=== PATIENT | female | born 1955 | race Caucasian/White ===

== ENCOUNTER 2018-10-11 08:30 | Observation (INO) | payer BC ==
[2018-10-11] VITALS (9 sets, daily range): BP systolic 139–158; BP diastolic 77–137
[~2018-10-11] VITALS: Ht 172.7 cm; Wt 120.0 kg
[~2018-10-11 08:30] MED LIST: ASPI-630 PO; ATEN50TA PO; CETI10TA16 PO; CYAN-9 PO; DICY10CA3 PO; GLUC1CAP48 PO; HYDROmorphone 2 MG/ML VIAL IV PRN; INSU100V37 SQ; IV RINGERS,LACTATED 1000ML 1,000 ML IV SCH; LIDOCAINE 1% PF 2 ML VIAL. ID PRN; LIRA0.6P2 SQ; METF10007 PO; MONT10TA49 PO; MORPHINE SULFATE 2 MG/ML VIAL. IV PRN; MULT1TAB52 PO; ONDANSETRON PF 4 MG/2 ML VIAL. IV PRN; PROCHLORPERAZINE 10 MG/2 ML VIAL. IV PRN; SIMV40TA PO; TELM40TA PO; fentaNYL PF VIAL 100 MCG/2 ML VIAL IV PRN
[2018-10-11] MEDS ORDERED: INSULIN LISPRO 100 UNIT/ML 3ML VIAL for OP,RR ONLY. SQ PRN (09:00)
[2018-10-11] MEDS ORDERED: fentaNYL PF VIAL 100 MCG/2 ML VIAL ONE ×2 (09:34→12:05)
[2018-10-11] MEDS ORDERED: DEXAMETHASONE SOD PHOS 4 MG/ML VIAL ONE (10:58)
[2018-10-11] MEDS ORDERED: PHENYLEPHRINE in 0.9% NACL PF 1 MG/10 ML SYRINGE. IV ONE (10:58)
[2018-10-11] MEDS ORDERED: LIDOCAINE 2% PF 5 ML VIAL. ONE (10:58)
[2018-10-11] MEDS ORDERED: SEVOFLURANE > 120 MINUTES. IH ONE (10:58)
[2018-10-11] MEDS ORDERED: ONDANSETRON PF 4 MG/2 ML VIAL. ONE (10:58)
[2018-10-11] MEDS ORDERED: PROPOFOL 20 ML IV ONE (10:58)
[2018-10-11] MEDS ORDERED: ceFAZolin 2GM PREMIX 2 GM/50 ML BAG IV ONE (11:00)
[2018-10-11] MEDS ORDERED: PROCHLORPERAZINE 10 MG/2 ML VIAL. ONE (12:05)
[2018-10-11] MEDS ORDERED: IV NORMAL SALINE 1000ML BAG 1,000 ML IV SCH (12:12)
[2018-10-11] MEDS ORDERED: IV 1/2 NORMAL SALINE 1,000 ML IV SCH (12:12)
--- NOTE | 2018-10-11 12:12 | PDOC4 ---
Operative Note Operative Note Operative Note: Preoperative Diagnosis: Multinodular thyroid Postoperative Diagnosis: Same Procedure: Total thyroidectomy Surgeon: Hu Straw Hat Brim Raiser Operator: Tan Morales Anesthesia: Gen. EBL: 50 mL Specimen: Thyroid, stitch at right superior pole to pathology Drains: None Complications: None Indication: The patient is a 62-year-old female who was referred initially with dominant nodules of both lobes of her thyroid. I reviewed with her various options including needle biopsy versus thyroidectomy. She strongly prefers a complete thyroidectomy stating that relatives of hers had occult papillary thyroid cancer. The risks of surgery were discussed which include bleeding, infection, recurrent laryngeal nerve injury, hypoparathyroidism, pain, voice changes, potential need for additional surgery or procedure. She understands and would like to proceed Description: The patient was taken the operating room and placed supine on the operating table. Gen. anesthesia was performed. The anterior neck was prepped with ChloraPrep and draped in a standard surgical manner. The Nims device was also assembled. A curved neck incision was made 2 finger breaths above the sternal notch. Cautery dissection was carried to the platysma. Subplatysmal flaps were developed with cautery. The Mahorner retractor was used to facilitate exposure. The strap muscle fascia was divided in the midline and we began dissection on the right thyroid lobe. The lateral attachments were mobilized primarily with cautery. We then began taking down the superior pole. The blood vessels of the superior pole were ligated with 2-0 Vicryl and divided. The Harmonic scalpel assisted with this dissection as well. In a similar manner the inferior pole vessels were taken down. There was a glandular structure consistent with a parathyroid gland which was left intact. In a lateral to medial manner we mobilized the thyroid lobe. There was a small lobule of tissue in close approximation to the recurrent laryngeal nerve which we elected to keep intact to ensure nerve preservation. We then directed our attention to the left thyroid lobe. In a similar manner the superior and inferior pole vessels were ligated and divided. The left thyroid lobe was mobilized in a lateral to medial fashion. The left recurrent laryngeal nerve was readily identified and stimulated appropriately with the Nims device. In addition we saw two glandular structures consistent with parathyroid glands which were preserved. With the Harmonic scalpel all remaining attachments to the trachea were divided and the gland was fully removed. The right superior pole was with a 3-0 Vicryl suture and the specimen was sent to pathology for evaluation. Hemostasis was good. The left recurrent laryngeal nerve again stimulated appropriately. No other gross abnormalities were identified. The strap muscle fascia was approximated with 3-0 Vicryl. The platysma was approximated with 3-0 Vicryl. The skin was closed with 4-0 Monocryl. Steri-Strips and a sterile dressing were applied. The patient tolerated the procedure well and was sent to the recovery room in stable condition. At the end of the case all counts were correct. TUSHAR MURPHY MD Oct 11, 2018 12:12
[2018-10-11] MEDS ORDERED: 0.9 % SODIUM CHLORIDE 10 ML DISP.SYRIN. IV PRN (12:15)
[2018-10-11] MEDS ORDERED: HYDROmorphone 2 MG/ML VIAL IV PRN (12:15)
[2018-10-11] MEDS ORDERED: oxyCODONE/APAP 5/325 1 TAB TABLET PO PRN (12:15)
[2018-10-11] MEDS ORDERED: ONDANSETRON PF 4 MG/2 ML VIAL. IV PRN (12:15)
[2018-10-11] MEDS ORDERED: NALOXONE 0.4 MG/ML VIAL. IV PRN (12:15)
--- NOTE | 2018-10-11 13:15 | NUR ---
Rec'd from PACU per bed, anterior neck dressing clean, dry & intact, states discomfort level 5/10, ice pack in place for comfort, appears drowsy, IVF infusing into left hand, bilateral SCD's in place, oxygen @ 3L/nc, HOB elevatedoriented to surroundings, call light within reach, side rails up x 3, family members at bedside
[2018-10-11] MEDS: metFORMIN 500 MG TABLET PO SCH (16:51)
[2018-10-11] MEDS ORDERED: NON FORMULARY ITEM (Liraglutide (Victoza 3-Pak) 1.8 MG) SQ SCH (18:00)
[2018-10-11] MEDS: oxyCODONE/APAP 5/325 1 TAB TABLET PO PRN (19:32)
[2018-10-11] MEDS ORDERED: INSULIN GLARGINE SYRINGE. SQ SCH (21:00)
[2018-10-11] MEDS ORDERED: SIMVASTATIN 40 MG TABLET. PO SCH (21:00)
[2018-10-11] MEDS ORDERED: MONTELUKAST SODIUM 10 MG TABLET. PO SCH (21:00)
[2018-10-11] MEDS: DICYCLOMINE HCL 10 MG CAPSULE PO SCH (21:57)
[2018-10-11] MEDS: ATENOLOL 50 MG TABLET. PO SCH (21:58)
[2018-10-12 03:00] VITALS: BP 151/87
[2018-10-12 06:00] VITALS: BP 152/91
[2018-10-12] MEDS: metFORMIN 500 MG TABLET PO SCH (08:07)
[2018-10-12] MEDS: oxyCODONE/APAP 5/325 1 TAB TABLET PO PRN (08:08)
[2018-10-12] MEDS: DICYCLOMINE HCL 10 MG CAPSULE PO SCH (08:08)
[2018-10-12] MEDS: ATENOLOL 50 MG TABLET. PO SCH (08:14)
[2018-10-12] MEDS ORDERED: INSULIN GLARGINE SYRINGE. SQ SCH (09:00)
[2018-10-12] MEDS ORDERED: LOSARTAN POTASSIUM 25 MG TABLET. PO SCH (09:00)
[2018-10-12] MEDS ORDERED: MULTIVITAMIN with MINERAL TABLET. PO SCH (09:00)
[2018-10-12] MEDS ORDERED: ASPIRIN CHEWABLE 81 MG TABLET. PO SCH (09:00)
[2018-10-12] MEDS ORDERED: CETIRIZINE HCL 10 MG TABLET. PO SCH (09:00)
[2018-10-12 10:58] VITALS: BP 140/72
--- NOTE | 2018-10-12 11:28 | PDOC ---
SURGICAL PROGRESS NOTE Subjective tolerating diet, throat mildly sore voice strong ambulating urinating Vital Signs Vital Signs Date Time Temp Pulse Resp B/P (MAP) Pulse Ox O2 Delivery O2 Flow Rate FiO2 10/12/18 10:58 97.7 65 18 140/72 (94) 95 Room Air 97.7 10/12/18 03:00 2.0 I&O Intake and Output 10/12/18 07:00 Intake Total 1910 ml Output Total 1100 ml Balance 810 ml Intake Oral 460 ml IV Total 1450 ml Output Urine Total 1050 ml Estimated Blood Loss 50 ml # Voids 3 General: Alert, Oriented X3, Cooperative, No acute distress HEENT: Other (neck incision c/d/i, no erythema, no swelling or ecchymosis) Labs Laboratory Tests Test 10/11/18 08:57 10/11/18 12:13 10/11/18 16:44 10/11/18 21:50 Glucose (Fingerstick) 131 mg/dL (70-99) 95 mg/dL (70-99) 139 mg/dL (70-99) 160 mg/dL (70-99) Test 10/12/18 06:23 10/12/18 08:35 10/12/18 10:55 Glucose (Fingerstick) 101 mg/dL (70-99) 93 mg/dL (70-99) Calcium Level 7.9 mg/dL (8.5-10.1) Laboratory Tests Test 10/11/18 12:13 10/11/18 16:44 10/11/18 21:50 10/12/18 06:23 Glucose (Fingerstick) 95 mg/dL (70-99) 139 mg/dL (70-99) 160 mg/dL (70-99) 101 mg/dL (70-99) Test 10/12/18 08:35 10/12/18 10:55 Calcium Level 7.9 mg/dL (8.5-10.1) Glucose (Fingerstick) 93 mg/dL (70-99) Assessment/Plan s/p total thyroidectomy ca mildly low 7.9 scripts on chart for calcium, vit d, levothyroxine, and percocet Fu in clinic 2 weeks BRAYAN CANO APRN Oct 12, 2018 11:28
[2018-10-12] MEDS ORDERED: CHOL10003 PO (11:31)
[2018-10-12] MEDS ORDERED: LEVO50TA PO (11:31)
[2018-10-12] MEDS ORDERED: OXYC1TAB15 PO (11:31)
[2018-10-12] MEDS ORDERED: CALC500T13 PO (11:31)
--- NOTE | 2018-10-12 11:35 | DISCH ---
DISCHARGE INSTRUCTIONS Condition on Discharge Condition on Discharge: Stable Activity After Discharge Activity Instructions for Disc: Activity as tolerated, Avoid exertion Driving Instructions after Dis: Do not drive today Weight Bearing Status after Di: No restrictions Diet after Discharge Diet after Discharge: Diabetic No Calorie Level Diet Texture: Regular Liquid Texture: Thin Liquid Wound Incision Care Wound/Incision Care: Ice to area for comfort, May get incision wet, No wound care needed Other wound/incision instructi: ZACK Contacting the [facility] after DC Call your doctor for: Concerns you may have Follow-Up Follow Up With: Dr. Lui in 10-14 days [phone] Treatment/Equipment after DC Adaptive Equipment Issued: None BRAYAN CANO APRN Oct 12, 2018 11:35
[2018-10-12] MEDS ORDERED: LEVOTHYROXINE 50 MCG TABLET PO SCH (12:00)
[2018-10-12] MEDS ORDERED: CALCIUM CARBONATE 500 MG TABLET PO SCH (13:00)
--- NOTE | 2018-10-12 13:35 | NUR ---
Discharge instructions given with prescriptions. Answered questions or concerns. Verbalized understanding. Pt discharged home accompanied by daughter.
[2018-10-13] MEDS ORDERED: CHOLECALCIFEROL (VITAMIN D3) 1,000 UNIT TABLET PO SCH (09:00)
--- NOTE | 2018-10-13 19:29 | PATHOLOGY ---
[facility] Accession Number: [id number] . 01 Material submitted: . thyroid gland - THYROID . 01 Clinical history: . Multinodular goiter . 02 Diagnosis: Thyroid gland, total thyroidectomy: - Adenomatous and colloid nodules, right and left thyroid lobes and thyroid isthmus, the largest measuring 1.8 cm in greatest dimension, showing focal cystic degeneration, sclerosis, and calcification (thyroid weight 28 grams). - Presence of benign thyroid tissue infiltrating skeletal muscle of the thyroid isthmic region. - No parathyroid glands identified. . (JPM:mml; 10/13/2018) [facility]/10/13/2018 . 02 Comment: There is no evidence of malignancy. . (JPM:mml; 10/13/2018) . 02 Electronically signed: . Kash Malone MD, Pathologist NPI- [id number] . 01 Gross description: . The specimen is received in formalin, labeled "Geetha Call, thyroid suture at right superior pole", is an oriented total thyroidectomy specimen with a suture designated as right superior pole, weighing 28 g and with asymmetrical lobes measuring right lobe = 6.2 x 3.4 x 1.7 cm, isthmus = 4.0 x 1.8 x 0.8 cm and left lobe = 4.0 x 2.0 x 1.8 cm. The external surface is smooth and intact. The specimen is inked as follows: Right anterior = blue, anterior isthmus = yellow, left anterior = green and entire posterior = black. The cut surface has multiple gelatinous, cystic, hemorrhagic nodules ranging from 0.3 cm to 1.8 cm in diameter throughout the gland. There two bryant-white, firm, solid focus probable fibrosis measuring 0.8 x 0.3 x 0.2 cm in right lower pole and 0.8 x 0.3 x 0.3 cm in the left superior pole. The cyst nodules are confined within the gland and does not extend to the external capsule. The uninvolved thyroid parenchyma is beefy red. Both the fibrous focus our entirely submitted. Representatively submitted as follows: A1-A4. Right lobe, superior to inferior pole. (A3 and A4 = fibrous focus) A5-A6. Isthmus, single slice bisected in each cassette. A7-A10. Left lobe, superior to inferior pole. (A7 = fibrous focus) ([facility]; 10/12/2018) [facility] . 02 Pathologist provided ICD-10: E04.2 . 02 CPT . 497121 Specimen Comment: A courtesy copy of this report has been sent to Specimen Comment: [phone], , . Specimen Comment: Report sent to ,DR THACKER / DR LE Performed at: 01 [facility] [address] [facility] [address] [address], [place] [id number] MD Jesus Jacobo MD Phone: [phone] Performed at: 02 [facility] [address], [place] [id number] MD Kash Malone MD Phone: [phone]
== END 2018-10-12 13:35 | disposition home or self-care (01) ==
LOC: SURG 08:30 → 4 SOUTHEST 12:27
PROVIDERS: ADMIT Surgery; ATTEND Surgery
PROC: 0GBJ0ZZ Excision of Thyroid Gland Isthmus, Open Approach (ICD-10-PCS; 2018-10-11)
PROC: 0GTK0ZZ Resection of Thyroid Gland, Open Approach (ICD-10-PCS; principal; 2018-10-11 10:00)
DX: E04.2 Nontoxic multinodular goiter (principal); I10 Essential (primary) hypertension; E11.9 Type 2 diabetes mellitus without complications; E66.9 Obesity, unspecified
CPT/HCPCS: 36415; 60240; 82310; 82962; 88307; 96372; A7015; G0378; G0379; J0696; J1100; J1815; J2001; J2370; J2704; J3010; J7120; J0780; J2405

== ENCOUNTER 2018-10-17 12:40 | Inpatient (IN) | payer BC ==
[~2018-10-17] VITALS: Ht 172.7 cm; Wt 117.2 kg
[~2018-10-17 12:40] MED LIST changes: +CALC500T13 PO; +CHOL10003 PO; -HYDROmorphone 2 MG/ML VIAL IV PRN; -IV RINGERS,LACTATED 1000ML 1,000 ML IV SCH; +LEVO50TA PO; -LIDOCAINE 1% PF 2 ML VIAL. ID PRN; -MORPHINE SULFATE 2 MG/ML VIAL. IV PRN; -ONDANSETRON PF 4 MG/2 ML VIAL. IV PRN; +OXYC1TAB15 PO; -PROCHLORPERAZINE 10 MG/2 ML VIAL. IV PRN; -fentaNYL PF VIAL 100 MCG/2 ML VIAL IV PRN
[2018-10-17] MEDS ORDERED: fentaNYL PF VIAL 100 MCG/2 ML VIAL IV ONE (13:15)
--- NOTE | 2018-10-17 13:27 | PHYS DOC ---
Adult General Chief Complaint Chief Complaint: LOWER EXTREMITY SWELLING HPI HPI Patient is a 62-year-old female who presents to the emergency department for evaluation. She underwent a thyroidectomy a few days ago, and overall has been doing well, except that she developed some swelling on the dorsum of her right foot, as well as increasing pain, warmth, and redness, which has gradually been working its way up her right anterior guzmán. She denies any injuries. She did undergo an outpatient ultrasound, yesterday, which she reports was negative for evidence of DVT. Numbness, or weakness P palpation and attempted ambulation worsen her pain. There are no alleviating factors to her symptoms. Review of Systems Review of Systems Constitutional: Denies fever or chills [] Eyes: Denies change in visual acuity, redness, or eye pain [] HENT: Denies nasal congestion or sore throat [] Respiratory: Denies cough or shortness of breath . Denies pleuritic chest pain.[] Cardiovascular:The patient denies any shortness of breath, chest pain, palpitations, or orthopnea [] GI: Denies abdominal pain, nausea, vomiting, bloody stools or diarrhea [] : Denies dysuria or hematuria [] Musculoskeletal: Denies back pain or joint pain , except as noted in the history of present illness[] Integument: Denies rash or skin lesions, except as noted in the history of present illness [] Neurologic: Denies headache, focal weakness or sensory changes [] Endocrine: Denies polyuria or polydipsia [] All other systems were reviewed and found to be within normal limits, except as documented in this note. Current Medications Current Medications Current Medications Medications (Trade) Dose Ordered Sig/Randy Start Time Stop Time Status Last Admin Dose Admin Clindamycin Phosphate 50 ml @ 100 mls/hr 1X ONCE 10/17/18 15:15 10/17/18 15:44 10/17/18 15:25 100 MLS/HR Fentanyl Citrate (Fentanyl 2ml Vial) 50 mcg 1X ONCE 10/17/18 13:15 10/17/18 13:16 DC 10/17/18 13:59 50 MCG Allergies Allergies Allergies Coded Allergies Type Severity Reaction Last Updated Verified No Known Drug Allergies 10/11/18 No Physical Exam Physical Exam PHYSICAL EXAM: CONSTITUTIONAL: Well developed, well nourished HEAD: normocephalic, atraumatic EENT: PERRL, EOMI. Conjunctivae normal color, sclerae non-icteric; moist mucous membranes. NECK: Supple, non-tender; no meningismus. There is a clean, healing surgical scar in the anterior aspect of the neck. LUNGS: Lungs CTA, breathing even and unlabored. Normal air movement. HEART: Regular rate and rhythm, no murmur CHEST: No deformity; non-tender ABDOMEN: The abdomen is soft, and non-tender, no masses or bruits. EXTREM: There is edema noted to the right ankle and dorsum of the right foot, with warmth and erythema to this area. The area is tender to touch. Dorsalis pedis pulses present. Erythema extends up towards the distal third of the right guzmán. There is trace pedal edema on the left ankle and foot, not as pronounced as on the right. The remainder of the extremities are unremarkable, demonstrating Normal ROM; no deformity, no calf tenderness. Normal pulses palpable in all extremities. SKIN: No rash; no diaphoresis NEURO: Alert; normal speech and cognition; CN's grossly intact; strength grossly intact without focal deficit. BACK: No CVA TTP. Current Patient Data Vital Signs Vital Signs Date Time Temp Pulse Resp B/P (MAP) Pulse Ox O2 Delivery O2 Flow Rate FiO2 10/17/18 13:00 98.6 79 16 168/74 (105) 93 Room Air 98.6 Lab Values Laboratory Tests Test 10/17/18 13:45 White Blood Count 8.1 x10^3/uL (4.0-11.0) Red Blood Count 4.81 x10^6/uL (3.50-5.40) Hemoglobin 13.8 g/dL (12.0-15.5) Hematocrit 40.8 % (36.0-47.0) Mean Corpuscular Volume 85 fL (79-100) Mean Corpuscular Hemoglobin 29 pg (25-35) Mean Corpuscular Hemoglobin Concent 34 g/dL (31-37) Red Cell Distribution Width 14.8 % (11.5-14.5) H Platelet Count 191 x10^3/uL (140-400) Neutrophils (%) (Auto) 67 % (31-73) Lymphocytes (%) (Auto) 20 % (24-48) L Monocytes (%) (Auto) 12 % (0-9) H Eosinophils (%) (Auto) 1 % (0-3) Basophils (%) (Auto) 0 % (0-3) Neutrophils # (Auto) 5.4 x10^3/uL (1.8-7.7) Lymphocytes # (Auto) 1.6 x10^3/uL (1.0-4.8) Monocytes # (Auto) 1.0 x10^3/uL (0.0-1.1) Eosinophils # (Auto) 0.1 x10^3/uL (0.0-0.7) Basophils # (Auto) 0.0 x10^3/uL (0.0-0.2) Erythrocyte Sedimentation Rate 50 (0-25) H Sodium Level 140 mmol/L (136-145) Potassium Level 4.1 mmol/L (3.5-5.1) Chloride Level 101 mmol/L (98-107) Carbon Dioxide Level 33 mmol/L (21-32) H Anion Gap 6 (6-14) Blood Urea Nitrogen 10 mg/dL (7-20) Creatinine 0.6 mg/dL (0.6-1.0) Estimated GFR (Cockcroft-Gault) 102.0 BUN/Creatinine Ratio 17 (6-20) Glucose Level 114 mg/dL (70-99) H Lactic Acid Level 1.8 mmol/L (0.4-2.0) Uric Acid 7.3 mg/dL (2.6-6.0) H Calcium Level 7.5 mg/dL (8.5-10.1) L Ionized Calcium 0.92 mmol/L (1.13-1.32) L Total Bilirubin 1.0 mg/dL (0.2-1.0) Aspartate Amino Transferase (AST) 23 U/L (15-37) Alanine Aminotransferase (ALT) 23 U/L (14-59) Alkaline Phosphatase 86 U/L (46-116) C-Reactive Protein, Quantitative 80.5 mg/L (0-3.3) H UV-Eed-O-Type Natriuretic Peptide 46 pg/mL (0-124) Total Protein 7.7 g/dL (6.4-8.2) Albumin 3.6 g/dL (3.4-5.0) Albumin/Globulin Ratio 0.9 (1.0-1.7) L Laboratory Tests 10/17/18 13:45 Laboratory Tests 10/17/18 13:45 EKG EKG [] Radiology/Procedures Radiology/Procedures [PROCEDURE: ANKLE RIGHT 3V EXAM: 3 views right ankle 3 views right foot DATE: 10/17/2018 1:06 PM INDICATION: Right foot and ankle pain. No known injury, swelling. COMPARISON: No Prior FINDINGS: No evidence of acute fracture or dislocation. Ankle mortise is congruent. Talar dome is intact. Decreased bone mineral density. Calcaneal enthesopathy. Midfoot degenerative changes are seen. Type I accessory navicular. Prominent os peroneus. IMPRESSION: 1. Within the constraints of osteopenia, no evidence for acute fracture or dislocation. If there is persistent clinical concern for fracture, follow-up radiographs in 10-14 days is recommended. 2. Ankle mortise is congruent. Talar dome is intact.] Course & Med Decision Making Course & Med Decision Making Pertinent Labs and Imaging studies reviewed. (See chart for details) []3:30 PM:The patient's condition remains stable. I spoke with the hospitalist, who accepted the patient to the hospital for further evaluation and treatment. Dragon Disclaimer Dragon Disclaimer This electronic medical record was generated, in whole or in part, using a voice recognition dictation system. Departure Departure Impression: Primary Impression: Cellulitis Disposition: ADMITTED INPATIENT Admitting Physician: PEYTON Condition: STABLE Referrals: DAVID THACKER MD (PCP) JOSIAH HINSON MD Oct 17, 2018 13:27
--- NOTE | 2018-10-17 13:40 | RAD ---
EXAM: 3 views right ankle 3 views right foot DATE: 10/17/2018 1:06 PM INDICATION: Right foot and ankle pain. No known injury, swelling. COMPARISON: No Prior FINDINGS: No evidence of acute fracture or dislocation. Ankle mortise is congruent. Talar dome is intact. Decreased bone mineral density. Calcaneal enthesopathy. Midfoot degenerative changes are seen. Type I accessory navicular. Prominent os peroneus. IMPRESSION: 1. Within the constraints of osteopenia, no evidence for acute fracture or dislocation. If there is persistent clinical concern for fracture, follow-up radiographs in 10-14 days is recommended. 2. Ankle mortise is congruent. Talar dome is intact. Electronically signed by: Christopher Falk MD (10/17/2018 1:37 PM) [id number]
[2018-10-17 14:05] LABS: BASO % 0 % (0-3); EOS # 0.1 x10^3/uL (0.0-0.7); EOS % 1 % (0-3); HEMATOCRIT 40.8 % (36.0-47.0); HEMOGLOBIN 13.8 g/dL (12.0-15.5); LYMPH # 1.6 x10^3/uL (1.0-4.8); LYMPH % 20 % (24-48); MEAN CORPUSCULAR HEMOGLOBIN 29 pg (25-35); MEAN CORPUSCULAR HGB CONC 34 g/dL (31-37); MEAN CORPUSCULAR VOLUME 85 fL (79-100); MONO % 12 % (0-9); NEUT # 5.4 x10^3/uL (1.8-7.7); NEUT % 67 % (31-73); PLATELET COUNT 191 x10^3/uL (140-400); RED BLOOD COUNT 4.81 x10^6/uL (3.50-5.40); RED CELL DISTRIBUTION WIDTH 14.8 % (11.5-14.5); WHITE BLOOD COUNT 8.1 x10^3/uL (4.0-11.0)
[2018-10-17 14:19] LABS: CALCIUM 7.5 mg/dL (8.5-10.1); CREATININE 0.6 mg/dL (0.6-1.0); POTASSIUM 4.1 mmol/L (3.5-5.1)
[2018-10-17 14:33] LABS: ALBUMIN 3.6 g/dL (3.4-5.0); ALBUMIN/GLOBULIN RATIO 0.9 (1.0-1.7); C-REACTIVE PROTEIN 80.5 mg/L (0-3.3); TOTAL PROTEIN 7.7 g/dL (6.4-8.2); URIC ACID 7.3 mg/dL (2.6-6.0)
[2018-10-17] MEDS ORDERED: CLINDAMYCIN 900MG PREMIX 50 ML IV ONE (15:15)
[2018-10-17] MEDS ORDERED: oxyCODONE/APAP 5/325 1 TAB TABLET PO PRN (16:15)
[2018-10-17] MEDS ORDERED: HYDROcodone/APAP 5/325MG 1 TAB TABLET PO PRN (16:15)
[2018-10-17] MEDS ORDERED: fentaNYL PF VIAL 100 MCG/2 ML VIAL IV PRN (16:15)
[2018-10-17] MEDS ORDERED: cloNIDine HCL 0.1 MG TABLET PO PRN (16:15)
[2018-10-17] MEDS ORDERED: DEXTROSE 50% 25 GM / 50ML DISP.SYRIN. IV PRN (16:15)
[2018-10-17] MEDS ORDERED: IV DEXTROSE 5% 250 ML BAG. IV PRN (16:15)
[2018-10-17] MEDS ORDERED: ONDANSETRON PF 4 MG/2 ML VIAL. IV PRN (16:15)
[2018-10-17] MEDS ORDERED: TEMAZEPAM 7.5 MG CAPSULE PO PRN (16:15)
[2018-10-17] MEDS ORDERED: INSULIN LISPRO 300 UNITS/3 ML VIAL. SQ SCH (17:00)
[2018-10-17] MEDS ORDERED: predniSONE 20 MG TABLET PO ONE (17:45)
[2018-10-17] MEDS ORDERED: INSULIN GLARGINE SYRINGE. SQ SCH (18:00)
[2018-10-17] MEDS ORDERED: NON FORMULARY ITEM (Liraglutide (Victoza 3-Pak) 1.8 MG) SQ SCH (18:00)
[2018-10-17] MEDS ORDERED: COLCHICINE 0.6 MG TABLET PO ONE (18:00)
--- NOTE | 2018-10-17 18:06 | PDOC1 ---
History and Physical Date of Admission Date of Admission DATE: 10/17/18 TIME: 17:59 Identification/Chief Complaint Chief Complaint rt dorsal foot pain Source Source: Caregiver, Chart review, Patient History of Present Illness History of Present Illness 62 obese white female, had uneventful thyroidectomy here last week by our [facility] group, then 3-4 days ago woke up with acute RT dorsal foot redness and swelling, denies any skin breakage or trauma, no hx gout, BUT has elevated uric acid and esr /crp. And also now complains maybe the left foot is beginning some swelling, Got a dose clinda but i dont think this is infectious but rather inflammatory in nature, Will give colcrys, prednisone, nsaid, hold off abx for now, \US done as OP in that leg, neg for clot She has difficulty bearing weight on that extremity bec of the swelling Past Medical History Cardiovascular: HTN Endocrine: Diabetes Past Surgical History Past Surgical History: Other (thyroidectomy) Family History Family History: Hypertension Social History Smoke: No ALCOHOL: none Drugs: None Current Problem List Problem List Problems Medical Problems: (1) Cellulitis Status: Acute Current Medications Current Medications Current Medications Fentanyl Citrate (Fentanyl 2ml Vial) 50 mcg 1X ONCE IV Last administered on 10/17/18at 13:59; Start 10/17/18 at 13:15; Stop 10/17/18 at 13:16; Status DC Clindamycin Phosphate 50 ml @ 100 mls/hr 1X ONCE IV Last administered on 10/17/18at 15:25; Start 10/17/18 at 15:15; Stop 10/17/18 at 15:44; Status DC Fentanyl Citrate (Fentanyl 2ml Vial) 50 mcg PRN Q2HR PRN IV MODERATE TO SEVERE PAIN; Start 10/17/18 at 16:15 Clindamycin Phosphate 50 ml @ 100 mls/hr Q8HRS IV ; Start 10/17/18 at 22:00; Stop 10/17/18 at 17:38; Status DC Clonidine HCl (Catapres) 0.1 mg PRN Q1HR PRN PO HYPERTENSION; Start 10/17/18 at 16:15 Temazepam (Restoril) 7.5 mg PRN QHS PRN PO INSOMNIA; Start 10/17/18 at 16:15 Ondansetron HCl (Zofran) 4 mg PRN Q6HRS PRN IV NAUSEA/VOMITING; Start 10/17/18 at 16:15 Acetaminophen/ Hydrocodone Bitart (Lortab 5/325) 1 tab PRN Q4HRS PRN PO M ODERATE PAIN; Start 10/17/18 at 16:15 Naproxen (Naprosyn) 500 mg BID PO ; Start 10/17/18 at 21:00; Stop 10/17/18 at 17:38; Status DC Aspirin (Children'S Aspirin) 81 mg DAILY PO ; Start 10/18/18 at 09:00 Atenolol (Tenormin) 50 mg BID PO ; Start 10/17/18 at 21:00 Calcium Carbonate/ Glycine (Oscal) 500 mg TIDAFTMEAL PO ; Start 10/17/18 at 18:00 Cetirizine HCl (ZyrTEC) 10 mg DAILY PO ; Start 10/18/18 at 09:00 Vitamin D (Vitamin D3) 500 unit DAILY PO ; Start 10/18/18 at 09:00 Dicyclomine HCl (Bentyl) 10 mg BID PO ; Start 10/17/18 at 21:00 Levothyroxine Sodium (Synthroid) 50 mcg DAILY06 PO ; Start 10/18/18 at 06:00 Montelukast Sodium (Singulair) 10 mg HS PO ; Start 10/17/18 at 21:00 Oxycodone/ Acetaminophen (Percocet 5/325) 1 tab PRN Q4HRS PRN PO MILD PAIN, 1ST CHOICE; Start 10/17/18 at 16:15 Simvastatin (Zocor) 40 mg QHS PO ; Start 10/17/18 at 21:00 Cyanocobalamin (Vitamin B-12) 1,000 mcg DAILY PO ; Start 10/18/18 at 09:00 Non-Formulary Medication (Gluc 2KCL/ Chondr/Brian Hy/Hy Ac (Glucosamine & Chondroitin Cap)) 1 each DAILY PO ; Start 10/18/18 at 09:00; Status UNV Insulin Glargine (Lantus Syringe) 30 unit QEVNG SQ ; Start 10/17/18 at 18:00 Insulin Glargine (Lantus Syringe) 60 unit DAILYWBKFT SQ ; Start 10/18/18 at 08:00 Non-Formulary Medication (Liraglutide (Victoza 3-Sea)) 1.8 mg QEVNG SQ ; Start 10/17/18 at 18:00; Status UNV Metformin HCl (Glucophage) 1,000 mg BIDWMEALS PO ; Start 10/17/18 at 17:30 Multivitamins (Thera M Plus) 1 tab DAILY PO ; Start 10/18/18 at 09:00 Losartan Potassium (Cozaar) 25 mg DAILY PO ; Start 10/18/18 at 09:00 Insulin Human Lispro (HumaLOG) 0-9 UNITS TIDWMEALS SQ ; Start 10/17/18 at 17:00 Dextrose (Dextrose 50%-Water Syringe) 12.5 gm PRN Q15MIN PRN IV SEE COMMENTS; Start 10/17/18 at 16:15 Dextrose 250 ml PRN Q15MIN PRN IV SEE COMMENTS; Start 10/17/18 at 16:15; Status UNV Naproxen (Naprosyn) 500 mg BID PO ; Start 10/17/18 at 18:00 Colchicine (Colcrys) 1.2 mg 1X ONCE PO ; Start 10/17/18 at 18:00; Stop 10/17/18 at 18:01 Colchicine (Colcrys) 0.6 mg DAILY PO ; Start 10/18/18 at 09:00 Prednisone (Prednisone) 60 mg 1X ONCE PO ; Start 10/17/18 at 17:45; Stop 10/17/18 at 17:51; Status DC Prednisone (Prednisone) 40 mg DAILY PO ; Start 10/18/18 at 09:00 Active Scripts Active Vitamin D3 (Cholecalciferol (Vitamin D3)) 1,000 Unit Tablet 500 Unit PO DAILY Synthroid (Levothyroxine Sodium) 50 Mcg Tablet 50 Mcg PO DAILY06 Oyster Shell Calcium (Calcium Carbonate) 500 Mg Tablet 500 Mg PO TIDAFTMEAL Percocet 5-325 Mg Tablet (Oxycodone/Acetaminophen) 1 Each Tablet 1 Tab PO PRN Q4HRS PRN Reported Glucosamine & Chondroitin Cap (Gluc 2KCL/Chondr/Brian Hy/Hy Ac) 1 Each Capsule 1 Each PO DAILY Tresiba (Insulin Degludec) 100 Unit/1 Ml Vial 30 Unit SQ QEVNG Tresiba (Insulin Degludec) 100 Unit/1 Ml Vial 60 Unit SQ DAILYWBKFT Victoza 3-Sea (Liraglutide) 0.6 Mg/0.1 Ml Pen.injctr 1.8 Mg SQ QEVNG Aspirin 81 Mg Tab.chew 1 Tab PO DAILY Vitamin B-12 (Cyanocobalamin (Vitamin B-12)) 1,000 Mcg Capsule 1,000 Mcg PO DAILY Multivitamins (Multivitamin) 1 Each Tablet 1 Tab PO DAILY Dicyclomine Hcl 10 Mg Capsule 1 Cap PO BID Cetirizine Hcl 10 Mg Tablet 1 Tab PO DAILY Zocor (Simvastatin) 40 Mg Tablet 1 Tab PO QHS Atenolol 50 Mg Tablet 1 Tab PO BID Montelukast Sodium Tablet (Montelukast Sodium) 10 Mg Tablet 10 Mg PO HS Micardis (Telmisartan) 40 Mg Tablet 0.5 Tab PO DAILY Metformin Hcl 1,000 Mg Tablet 1,000 Mg PO BIDWMEALS Allergies Allergies: Coded Allergies: No Known Drug Allergies (Unverified , 10/11/18) ROS Review of System as per hpi, no fevers, the rest 14 pt neg Physical Exam General: Alert, Oriented X3, Cooperative, No acute distress HEENT: Atraumatic, PERRLA, EOMI Lungs: Clear to auscultation, Normal air movement Heart: S1S2, RRR, no thrills, no rubs, no gallops, no murmurs Cardiovascular: S1 Breasts: Normal, Rt breast nml w/o mass, Lt breast nml w/o mass, Nipples normal Abdomen: Normal bowel sounds, Soft, No tenderness, No hepatosplenomegaly, No masses Male Genitals Exam: normal genitalia, normal prostate Rectal Exam: not examined Extremities: Other (redenss rt dorsal surface, noskin break, limited movement bec of pain and swelling) Neuro: Normal gait, Normal speech, Strength at 5/5 X4 ext, Normal tone, Sensation intact, Cranial nerves 3-12 NL, Reflexes 2+ Psych/Mental Status: Mental status NL, Mood NL Vitals Vitals Vital Signs Date Time Temp Pulse Resp B/P (MAP) Pulse Ox O2 Delivery O2 Flow Rate FiO2 10/17/18 16:00 76 19 141/66 (91) 95 Nasal Cannula 2.0 10/17/18 13:00 98.6 98.6 Labs Labs Laboratory Tests Test 10/17/18 13:45 White Blood Count 8.1 x10^3/uL (4.0-11.0) Red Blood Count 4.81 x10^6/uL (3.50-5.40) Hemoglobin 13.8 g/dL (12.0-15.5) Hematocrit 40.8 % (36.0-47.0) Mean Corpuscular Volume 85 fL (79-100) Mean Corpuscular Hemoglobin 29 pg (25-35) Mean Corpuscular Hemoglobin Concent 34 g/dL (31-37) Red Cell Distribution Width 14.8 % (11.5-14.5) Platelet Count 191 x10^3/uL (140-400) Neutrophils (%) (Auto) 67 % (31-73) Lymphocytes (%) (Auto) 20 % (24-48) Monocytes (%) (Auto) 12 % (0-9) Eosinophils (%) (Auto) 1 % (0-3) Basophils (%) (Auto) 0 % (0-3) Neutrophils # (Auto) 5.4 x10^3/uL (1.8-7.7) Lymphocytes # (Auto) 1.6 x10^3/uL (1.0-4.8) Monocytes # (Auto) 1.0 x10^3/uL (0.0-1.1) Eosinophils # (Auto) 0.1 x10^3/uL (0.0-0.7) Basophils # (Auto) 0.0 x10^3/uL (0.0-0.2) Erythrocyte Sedimentation Rate 50 (0-25) Sodium Level 140 mmol/L (136-145) Potassium Level 4.1 mmol/L (3.5-5.1) Chloride Level 101 mmol/L (98-107) Carbon Dioxide Level 33 mmol/L (21-32) Anion Gap 6 (6-14) Blood Urea Nitrogen 10 mg/dL (7-20) Creatinine 0.6 mg/dL (0.6-1.0) Estimated GFR (Cockcroft-Gault) 102.0 BUN/Creatinine Ratio 17 (6-20) Glucose Level 114 mg/dL (70-99) Lactic Acid Level 1.8 mmol/L (0.4-2.0) Uric Acid 7.3 mg/dL (2.6-6.0) Calcium Level 7.5 mg/dL (8.5-10.1) Ionized Calcium 0.92 mmol/L (1.13-1.32) Total Bilirubin 1.0 mg/dL (0.2-1.0) Aspartate Amino Transf (AST/SGOT) 23 U/L (15-37) Alanine Aminotransferase (ALT/SGPT) 23 U/L (14-59) Alkaline Phosphatase 86 U/L (46-116) C-Reactive Protein, Quantitative 80.5 mg/L (0-3.3) HQ-Txi-H-Type Natriuretic Peptide 46 pg/mL (0-124) Total Protein 7.7 g/dL (6.4-8.2) Albumin 3.6 g/dL (3.4-5.0) Albumin/Globulin Ratio 0.9 (1.0-1.7) Laboratory Tests Test 10/17/18 13:45 White Blood Count 8.1 x10^3/uL (4.0-11.0) Red Blood Count 4.81 x10^6/uL (3.50-5.40) Hemoglobin 13.8 g/dL (12.0-15.5) Hematocrit 40.8 % (36.0-47.0) Mean Corpuscular Volume 85 fL (79-100) Mean Corpuscular Hemoglobin 29 pg (25-35) Mean Corpuscular Hemoglobin Concent 34 g/dL (31-37) Red Cell Distribution Width 14.8 % (11.5-14.5) Platelet Count 191 x10^3/uL (140-400) Neutrophils (%) (Auto) 67 % (31-73) Lymphocytes (%) (Auto) 20 % (24-48) Monocytes (%) (Auto) 12 % (0-9) Eosinophils (%) (Auto) 1 % (0-3) Basophils (%) (Auto) 0 % (0-3) Neutrophils # (Auto) 5.4 x10^3/uL (1.8-7.7) Lymphocytes # (Auto) 1.6 x10^3/uL (1.0-4.8) Monocytes # (Auto) 1.0 x10^3/uL (0.0-1.1) Eosinophils # (Auto) 0.1 x10^3/uL (0.0-0.7) Basophils # (Auto) 0.0 x10^3/uL (0.0-0.2) Erythrocyte Sedimentation Rate 50 (0-25) Sodium Level 140 mmol/L (136-145) Potassium Level 4.1 mmol/L (3.5-5.1) Chloride Level 101 mmol/L (98-107) Carbon Dioxide Level 33 mmol/L (21-32) Anion Gap 6 (6-14) Blood Urea Nitrogen 10 mg/dL (7-20) Creatinine 0.6 mg/dL (0.6-1.0) Estimated GFR (Cockcroft-Gault) 102.0 BUN/Creatinine Ratio 17 (6-20) Glucose Level 114 mg/dL (70-99) Lactic Acid Level 1.8 mmol/L (0.4-2.0) Uric Acid 7.3 mg/dL (2.6-6.0) Calcium Level 7.5 mg/dL (8.5-10.1) Ionized Calcium 0.92 mmol/L (1.13-1.32) Total Bilirubin 1.0 mg/dL (0.2-1.0) Aspartate Amino Transf (AST/SGOT) 23 U/L (15-37) Alanine Aminotransferase (ALT/SGPT) 23 U/L (14-59) Alkaline Phosphatase 86 U/L (46-116) C-Reactive Protein, Quantitative 80.5 mg/L (0-3.3) PU-Hjx-A-Type Natriuretic Peptide 46 pg/mL (0-124) Total Protein 7.7 g/dL (6.4-8.2) Albumin 3.6 g/dL (3.4-5.0) Albumin/Globulin Ratio 0.9 (1.0-1.7) VTE Prophylaxis Ordered VTE Prophylaxis Devices: Yes VTE Pharmacological Prophylaxi: Yes Assessment/Plan Assessment/Plan CLinically looks like gOUT, RT foot, neg sono as OP for DVT Cellulitis rt foot? - hold off abx REcent thyroidectomy, uneventful Obesity DM 2 HTN controlled PLAn: PRed PO now and colcrys 1.2 then 0.6 PO qD ESR crp and uric acid all elevated ok to eat I held off abx 2 mN, Med surg floor ok FULL CODE I have reconciled home meds Seen at ER, dw aluminum container tester cont po synthroid WALE SANTOS MD Oct 17, 2018 18:06
[2018-10-17] MEDS: NAPROXEN 500 MG TABLET PO SCH (18:50)
[2018-10-17] MEDS: metFORMIN 500 MG TABLET PO SCH (18:50)
[2018-10-17] MEDS: CALCIUM CARBONATE 500 MG TABLET PO SCH (18:50)
[2018-10-17 19:00] VITALS: BP 128/50
--- NOTE | 2018-10-17 19:29 | NUR ---
Pt arrived to unit at approx 1750. Oriented to room. Lungs CTA, S1 and S2 noted. Pt states she has 7-8/10 pain in her feet. Gave report to Vidhi shift supervisor rn RN.
[2018-10-17] MEDS ORDERED: SIMVASTATIN 40 MG TABLET. PO SCH (21:00)
[2018-10-17] MEDS ORDERED: NAPROXEN 500 MG TABLET PO SCH (21:00)
[2018-10-17] MEDS ORDERED: MONTELUKAST SODIUM 10 MG TABLET. PO SCH (21:00)
[2018-10-17] MEDS: ATENOLOL 50 MG TABLET. PO SCH (21:04)
[2018-10-17] MEDS: DICYCLOMINE HCL 10 MG CAPSULE PO SCH (21:04)
[2018-10-17] MEDS ORDERED: CLINDAMYCIN 600MG PREMIX 50 ML IV SCH (22:00)
[2018-10-17 23:00] VITALS: BP 147/45
[2018-10-18 03:00] VITALS: BP 144/81
[2018-10-18] MEDS ORDERED: LEVOTHYROXINE 50 MCG TABLET PO SCH (06:00)
[2018-10-18 07:00] VITALS: BP 164/87
[2018-10-18] MEDS ORDERED: INSULIN GLARGINE SYRINGE. SQ SCH (08:00)
[2018-10-18] MEDS: CALCIUM CARBONATE 500 MG TABLET PO SCH ×2 (08:31→13:00)
[2018-10-18] MEDS: metFORMIN 500 MG TABLET PO SCH (08:32)
[2018-10-18] MEDS: NAPROXEN 500 MG TABLET PO SCH (08:33)
[2018-10-18] MEDS: ATENOLOL 50 MG TABLET. PO SCH (08:35)
[2018-10-18] MEDS ORDERED: ASPIRIN CHEWABLE 81 MG TABLET. PO SCH (09:00)
[2018-10-18] MEDS ORDERED: NON FORMULARY ITEM (Gluc 2KCL/Chondr/Coll Hy/Hy Ac (Glucosamine & Chondroitin Cap) 1 EACH) PO SCH (09:00)
[2018-10-18] MEDS ORDERED: predniSONE 20 MG TABLET PO SCH (09:00)
[2018-10-18] MEDS ORDERED: CETIRIZINE HCL 10 MG TABLET. PO SCH (09:00)
[2018-10-18] MEDS ORDERED: COLCHICINE 0.6 MG TABLET PO SCH (09:00)
[2018-10-18] MEDS ORDERED: CHOLECALCIFEROL (VITAMIN D3) 1,000 UNIT TABLET PO SCH (09:00)
[2018-10-18] MEDS ORDERED: CYANOCOBALAMIN (VITAMIN B-12) 1,000 MCG TABLET. PO SCH (09:00)
[2018-10-18] MEDS ORDERED: MULTIVITAMIN with MINERAL TABLET. PO SCH (09:00)
[2018-10-18] MEDS ORDERED: LOSARTAN POTASSIUM 25 MG TABLET. PO SCH (09:00)
[2018-10-18] MEDS: DICYCLOMINE HCL 10 MG CAPSULE PO SCH (09:56)
--- NOTE | 2018-10-18 10:38 | PDOC ---
PROGRESS NOTES History of Present Illness History of Present Illness VTE Prophylaxis Ordered VTE Prophylaxis Devices: Yes VTE Pharmacological Prophylaxi: Yes Assessment/Plan Assessment/Plan CLinically looks like gOUT, RT foot, neg sono as OP for DVT ua slightly elevated Cellulitis rt foot? - hold off abx REcent thyroidectomy, uneventful Obesity DM 2 HTN controlled PLAn: pain control PRed PO now and colcrys 1.2 then 0.6 PO qD ESR crp and uric acid all elevated ok to eat I held off abx 2 mN, Med surg floor ok FULL CODE I have reconciled home meds cont po synthroid 28 min pt exam, chart review, > 50% of time spent with exam, chart review, pt care coordination Vitals Vitals Vital Signs Date Time Temp Pulse Resp B/P (MAP) Pulse Ox O2 Delivery O2 Flow Rate FiO2 10/18/18 10:07 18 Room Air 10/18/18 08:39 76 144/81 10/18/18 07:00 97.9 95 97.9 10/17/18 17:30 2.0 Physical Exam General: Alert, Oriented X3, Cooperative, No acute distress Heart: Regular rate, Normal S1, Normal S2 Lungs: Clear Abdomen: Normal bowel sounds, Soft, No tenderness, No hepatosplenomegaly, No masses Extremities: No cyanosis, Other (redenss rt dorsal surface, noskin break, limited movement bec of pain and swelling) Labs LABS EXAM: 3 views right ankle 3 views right foot DATE: 10/17/2018 1:06 PM INDICATION: Right foot and ankle pain. No known injury, swelling. COMPARISON: No Prior FINDINGS: No evidence of acute fracture or dislocation. Ankle mortise is congruent. Talar dome is intact. Decreased bone mineral density. Calcaneal enthesopathy. Midfoot degenerative changes are seen. Type I accessory navicular. Prominent os peroneus. IMPRESSION: 1. Within the constraints of osteopenia, no evidence for acute fracture or dislocation. If there is persistent clinical concern for fracture, follow-up radiographs in 10-14 days is recommended. 2. Ankle mortise is congruent. Talar dome is intact. Electronically signed by: Christopher Falk MD (10/17/2018 1:37 PM) [id number] Laboratory Tests Test 10/17/18 13:45 10/17/18 18:02 10/17/18 19:40 10/18/18 07:58 White Blood Count 8.1 x10^3/uL (4.0-11.0) Red Blood Count 4.81 x10^6/uL (3.50-5.40) Hemoglobin 13.8 g/dL (12.0-15.5) Hematocrit 40.8 % (36.0-47.0) Mean Corpuscular Volume 85 fL (79-100) Mean Corpuscular Hemoglobin 29 pg (25-35) Mean Corpuscular Hemoglobin Concent 34 g/dL (31-37) Red Cell Distribution Width 14.8 % (11.5-14.5) Platelet Count 191 x10^3/uL (140-400) Neutrophils (%) (Auto) 67 % (31-73) Lymphocytes (%) (Auto) 20 % (24-48) Monocytes (%) (Auto) 12 % (0-9) Eosinophils (%) (Auto) 1 % (0-3) Basophils (%) (Auto) 0 % (0-3) Neutrophils # (Auto) 5.4 x10^3/uL (1.8-7.7) Lymphocytes # (Auto) 1.6 x10^3/uL (1.0-4.8) Monocytes # (Auto) 1.0 x10^3/uL (0.0-1.1) Eosinophils # (Auto) 0.1 x10^3/uL (0.0-0.7) Basophils # (Auto) 0.0 x10^3/uL (0.0-0.2) Erythrocyte Sedimentation Rate 50 (0-25) Sodium Level 140 mmol/L (136-145) Potassium Level 4.1 mmol/L (3.5-5.1) Chloride Level 101 mmol/L (98-107) Carbon Dioxide Level 33 mmol/L (21-32) Anion Gap 6 (6-14) Blood Urea Nitrogen 10 mg/dL (7-20) Creatinine 0.6 mg/dL (0.6-1.0) Estimated GFR (Cockcroft-Gault) 102.0 BUN/Creatinine Ratio 17 (6-20) Glucose Level 114 mg/dL (70-99) Lactic Acid Level 1.8 mmol/L (0.4-2.0) Uric Acid 7.3 mg/dL (2.6-6.0) Calcium Level 7.5 mg/dL (8.5-10.1) Ionized Calcium 0.92 mmol/L (1.13-1.32) Total Bilirubin 1.0 mg/dL (0.2-1.0) Aspartate Amino Transf (AST/SGOT) 23 U/L (15-37) Alanine Aminotransferase (ALT/SGPT) 23 U/L (14-59) Alkaline Phosphatase 86 U/L (46-116) C-Reactive Protein, Quantitative 80.5 mg/L (0-3.3) [id number]-Type Natriuretic Peptide 46 pg/mL (0-124) Total Protein 7.7 g/dL (6.4-8.2) Albumin 3.6 g/dL (3.4-5.0) Albumin/Globulin Ratio 0.9 (1.0-1.7) Glucose (Fingerstick) 71 mg/dL (70-99) 113 mg/dL (70-99) 132 mg/dL (70-99) Assessment and Plan Assessmemt and Plan Problems Medical Problems: (1) Cellulitis Status: Acute Comment Review of Relevant I have reviewed the following items meet (where applicable) has been applied. Labs Laboratory Tests Test 10/17/18 13:45 10/17/18 18:02 10/17/18 19:40 10/18/18 07:58 White Blood Count 8.1 x10^3/uL (4.0-11.0) Red Blood Count 4.81 x10^6/uL (3.50-5.40) Hemoglobin 13.8 g/dL (12.0-15.5) Hematocrit 40.8 % (36.0-47.0) Mean Corpuscular Volume 85 fL (79-100) Mean Corpuscular Hemoglobin 29 pg (25-35) Mean Corpuscular Hemoglobin Concent 34 g/dL (31-37) Red Cell Distribution Width 14.8 % (11.5-14.5) Platelet Count 191 x10^3/uL (140-400) Neutrophils (%) (Auto) 67 % (31-73) Lymphocytes (%) (Auto) 20 % (24-48) Monocytes (%) (Auto) 12 % (0-9) Eosinophils (%) (Auto) 1 % (0-3) Basophils (%) (Auto) 0 % (0-3) Neutrophils # (Auto) 5.4 x10^3/uL (1.8-7.7) Lymphocytes # (Auto) 1.6 x10^3/uL (1.0-4.8) Monocytes # (Auto) 1.0 x10^3/uL (0.0-1.1) Eosinophils # (Auto) 0.1 x10^3/uL (0.0-0.7) Basophils # (Auto) 0.0 x10^3/uL (0.0-0.2) Erythrocyte Sedimentation Rate 50 (0-25) Sodium Level 140 mmol/L (136-145) Potassium Level 4.1 mmol/L (3.5-5.1) Chloride Level 101 mmol/L (98-107) Carbon Dioxide Level 33 mmol/L (21-32) Anion Gap 6 (6-14) Blood Urea Nitrogen 10 mg/dL (7-20) Creatinine 0.6 mg/dL (0.6-1.0) Estimated GFR (Cockcroft-Gault) 102.0 BUN/Creatinine Ratio 17 (6-20) Glucose Level 114 mg/dL (70-99) Lactic Acid Level 1.8 mmol/L (0.4-2.0) Uric Acid 7.3 mg/dL (2.6-6.0) Calcium Level 7.5 mg/dL (8.5-10.1) Ionized Calcium 0.92 mmol/L (1.13-1.32) Total Bilirubin 1.0 mg/dL (0.2-1.0) Aspartate Amino Transf (AST/SGOT) 23 U/L (15-37) Alanine Aminotransferase (ALT/SGPT) 23 U/L (14-59) Alkaline Phosphatase 86 U/L (46-116) C-Reactive Protein, Quantitative 80.5 mg/L (0-3.3) GW-[id number]-M-Type Natriuretic Peptide 46 pg/mL (0-124) Total Protein 7.7 g/dL (6.4-8.2) Albumin 3.6 g/dL (3.4-5.0) Albumin/Globulin Ratio 0.9 (1.0-1.7) Glucose (Fingerstick) 71 mg/dL (70-99) 113 mg/dL (70-99) 132 mg/dL (70-99) Laboratory Tests Test 10/17/18 13:45 10/17/18 18:02 10/17/18 19:40 10/18/18 07:58 White Blood Count 8.1 x10^3/uL (4.0-11.0) Red Blood Count 4.81 x10^6/uL (3.50-5.40) Hemoglobin 13.8 g/dL (12.0-15.5) Hematocrit 40.8 % (36.0-47.0) Mean Corpuscular Volume 85 fL (79-100) Mean Corpuscular Hemoglobin 29 pg (25-35) Mean Corpuscular Hemoglobin Concent 34 g/dL (31-37) Red Cell Distribution Width 14.8 % (11.5-14.5) Platelet Count 191 x10^3/uL (140-400) Neutrophils (%) (Auto) 67 % (31-73) Lymphocytes (%) (Auto) 20 % (24-48) Monocytes (%) (Auto) 12 % (0-9) Eosinophils (%) (Auto) 1 % (0-3) Basophils (%) (Auto) 0 % (0-3) Neutrophils # (Auto) 5.4 x10^3/uL (1.8-7.7) Lymphocytes # (Auto) 1.6 x10^3/uL (1.0-4.8) Monocytes # (Auto) 1.0 x10^3/uL (0.0-1.1) Eosinophils # (Auto) 0.1 x10^3/uL (0.0-0.7) Basophils # (Auto) 0.0 x10^3/uL (0.0-0.2) Erythrocyte Sedimentation Rate 50 (0-25) Sodium Level 140 mmol/L (136-145) Potassium Level 4.1 mmol/L (3.5-5.1) Chloride Level 101 mmol/L (98-107) Carbon Dioxide Level 33 mmol/L (21-32) Anion Gap 6 (6-14) Blood Urea Nitrogen 10 mg/dL (7-20) Creatinine 0.6 mg/dL (0.6-1.0) Estimated GFR (Cockcroft-Gault) 102.0 BUN/Creatinine Ratio 17 (6-20) Glucose Level 114 mg/dL (70-99) Lactic Acid Level 1.8 mmol/L (0.4-2.0) Uric Acid 7.3 mg/dL (2.6-6.0) Calcium Level 7.5 mg/dL (8.5-10.1) Ionized Calcium 0.92 mmol/L (1.13-1.32) Total Bilirubin 1.0 mg/dL (0.2-1.0) Aspartate Amino Transf (AST/SGOT) 23 U/L (15-37) Alanine Aminotransferase (ALT/SGPT) 23 U/L (14-59) Alkaline Phosphatase 86 U/L (46-116) C-Reactive Protein, Quantitative 80.5 mg/L (0-3.3) BL-Jst-S-Type Natriuretic Peptide 46 pg/mL (0-124) Total Protein 7.7 g/dL (6.4-8.2) Albumin 3.6 g/dL (3.4-5.0) Albumin/Globulin Ratio 0.9 (1.0-1.7) Glucose (Fingerstick) 71 mg/dL (70-99) 113 mg/dL (70-99) 132 mg/dL (70-99) Medications Current Medications Fentanyl Citrate (Fentanyl 2ml Vial) 50 mcg 1X ONCE IV Last administered on 10/17/18at 13:59; Start 10/17/18 at 13:15; Stop 10/17/18 at 13:16; Status DC Clindamycin Phosphate 50 ml @ 100 mls/hr 1X ONCE IV Last administered on 10/17/18at 15:25; Start 10/17/18 at 15:15; Stop 10/17/18 at 15:44; Status DC Fentanyl Citrate (Fentanyl 2ml Vial) 50 mcg PRN Q2HR PRN IV MODERATE TO SEVERE PAIN Last administered on 10/17/18at 18:51; Start 10/17/18 at 16:15 Clindamycin Phosphate 50 ml @ 100 mls/hr Q8HRS IV ; Start 10/17/18 at 22:00; Stop 10/17/18 at 17:38; Status DC Clonidine HCl (Catapres) 0.1 mg PRN Q1HR PRN PO HYPERTENSION; Start 10/17/18 at 16:15 Temazepam (Restoril) 7.5 mg PRN QHS PRN PO INSOMNIA; Start 10/17/18 at 16:15 Ondansetron HCl (Zofran) 4 mg PRN Q6HRS PRN IV NAUSEA/VOMITING; Start 10/17/18 at 16:15 Acetaminophen/ Hydrocodone Bitart (Lortab 5/325) 1 tab PRN Q4HRS PRN PO MODERATE PAIN Last administered on 10/18/18at 10:07; Start 10/17/18 at 16:15 Naproxen (Naprosyn) 500 mg BID PO ; Start 10/17/18 at 21:00; Stop 10/17/18 at 17:38; Status DC Aspirin (Children'S Aspirin) 81 mg DAILY PO Last administered on 10/18/18 08:39; Start 10/18/18 at 09:00 Atenolol (Tenormin) 50 mg BID PO Last administered on 10/18/18 08:39; Start 10/17/18 at 21:00 Calcium Carbonate/ Glycine (Oscal) 500 mg TIDAFTMEAL PO Last administered on 10/18/18at 08:39; Start 10/17/18 at 18:00 Cetirizine HCl (ZyrTEC) 10 mg DAILY PO Last administered on 10/18/18 08:39; Start 10/18/18 at 09:00 Vitamin D (Vitamin D3) 500 unit DAILY PO Last administered on 10/18/18 08:39; Start 10/18/18 at 09:00 Dicyclomine HCl (Bentyl) 10 mg BID PO Last administered on 10/18/18at 10:07; Start 10/17/18 at 21:00 Levothyroxine Sodium (Synthroid) 50 mcg DAILY06 PO Last administered on 10/18/18at 06:01; Start 10/18/18 at 06:00 Montelukast Sodium (Singulair) 10 mg HS PO Last administered on 10/17/18at 21:04; Start 10/17/18 at 21:00 Oxycodone/ Acetaminophen (Percocet 5/325) 1 tab PRN Q4HRS PRN PO MILD PAIN, 1ST CHOICE; Start 10/17/18 at 16:15 Simvastatin (Zocor) 40 mg QHS PO Last administered on 10/17/18at 21:04; Start 10/17/18 at 21:00 Cyanocobalamin (Vitamin B-12) 1,000 mcg DAILY PO Last administered on 10/18/18 08:39; Start 10/18/18 at 09:00 Non-Formulary Medication (Gluc 2KCL/ Chondr/Brian Hy/Hy Ac (Glucosamine & Chondroitin Cap)) 1 each DAILY PO ; Start 10/18/18 at 09:00; Status UNV Insulin Glargine (Lantus Syringe) 30 unit QEVNG SQ Last administered on 10/17/18at 20:07; Start 10/17/18 at 18:00 Insulin Glargine (Lantus Syringe) 60 unit DAILYWBKFT SQ Last administered on 10/18/18at 10:07; Start 10/18/18 at 08:00 Non-Formulary Medication (Liraglutide (Victoza 3-Sea)) 1.8 mg QEVNG SQ ; Start 10/17/18 at 18:00; Status UNV Metformin HCl (Glucophage) 1,000 mg BIDWMEALS PO Last administered on 10/18/18 08:39; Start 10/17/18 at 17:30 Multivitamins (Thera M Plus) 1 tab DAILY PO Last administered on 10/18/18 08:39; Start 10/18/18 at 09:00 Losartan Potassium (Cozaar) 25 mg DAILY PO Last administered on 10/18/18 08:39; Start 10/18/18 at 09:00 Insulin Human Lispro (HumaLOG) 0-9 UNITS TIDWMEALS SQ ; Start 10/17/18 at 17:00; Stop 10/18/18 at 08:30; Status DC Dextrose (Dextrose 50%-Water Syringe) 12.5 gm PRN Q15MIN PRN IV SEE COMMENTS; Start 10/17/18 at 16:15 Dextrose 250 ml PRN Q15MIN PRN IV SEE COMMENTS; Start 10/17/18 at 16:15; Status UNV Naproxen (Naprosyn) 500 mg BID PO Last administered on 10/18/18at 08:39; Start 10/17/18 at 18:00 Colchicine (Colcrys) 1.2 mg 1X ONCE PO Last administered on 10/17/18at 18:51; Start 10/17/18 at 18:00; Stop 10/17/18 at 18:01; Status DC Colchicine (Colcrys) 0.6 mg DAILY PO Last administered on 10/18/18at 08:39; Start 10/18/18 at 09:00 Prednisone (Prednisone) 60 mg 1X ONCE PO Last administered on 10/17/18at 18:51; Start 10/17/18 at 17:45; Stop 10/17/18 at 17:51; Status DC Prednisone (Prednisone) 40 mg DAILY PO Last administered on 10/18/18at 08:39; Start 10/18/18 at 09:00 Active Scripts Active Vitamin D3 (Cholecalciferol (Vitamin D3)) 1,000 Unit Tablet 500 Unit PO DAILY Synthroid (Levothyroxine Sodium) 50 Mcg Tablet 50 Mcg PO DAILY06 Oyster Shell Calcium (Calcium Carbonate) 500 Mg Tablet 500 Mg PO TIDAFTMEAL Percocet 5-325 Mg Tablet (Oxycodone/Acetaminophen) 1 Each Tablet 1 Tab PO PRN Q4HRS PRN Reported Glucosamine & Chondroitin Cap (Gluc 2KCL/Chondr/Brian Hy/Hy Ac) 1 Each Capsule 1 Each PO DAILY Tresiba (Insulin Degludec) 100 Unit/1 Ml Vial 30 Unit SQ QEVNG Tresiba (Insulin Degludec) 100 Unit/1 Ml Vial 60 Unit SQ DAILYWBKFT Victoza 3-Sea (Liraglutide) 0.6 Mg/0.1 Ml Pen.injctr 1.8 Mg SQ QEVNG Aspirin 81 Mg Tab.chew 1 Tab PO DAILY Vitamin B-12 (Cyanocobalamin (Vitamin B-12)) 1,000 Mcg Capsule 1,000 Mcg PO DAILY Multivitamins (Multivitamin) 1 Each Tablet 1 Tab PO DAILY Dicyclomine Hcl 10 Mg Capsule 1 Cap PO BID Cetirizine Hcl 10 Mg Tablet 1 Tab PO DAILY Zocor (Simvastatin) 40 Mg Tablet 1 Tab PO QHS Atenolol 50 Mg Tablet 1 Tab PO BID Montelukast Sodium Tablet (Montelukast Sodium) 10 Mg Tablet 10 Mg PO HS Micardis (Telmisartan) 40 Mg Tablet 0.5 Tab PO DAILY Metformin Hcl 1,000 Mg Tablet 1,000 Mg PO BIDWMEALS Vitals/I & O Vital Sign - Last 24 Hours 10/17/18 10/17/18 10/17/18 10/17/18 13:00 14:00 14:30 15:00 Temp 98.6 98.6 Pulse 79 72 72 68 Resp 16 22 18 17 B/P (MAP) 168/74 (105) 125/55 (78) 129/64 (85) 145/65 (91) Pulse Ox 93 90 96 97 O2 Delivery Room Air Nasal Cannula Nasal Cannula Nasal Cannula O2 Flow Rate 2.0 2.0 2.0 10/17/18 10/17/18 10/17/18 10/17/18 15:30 16:00 16:30 17:00 Pulse 72 76 74 74 Resp 19 19 18 26 B/P (MAP) 141/64 (89) 141/66 (91) 145/68 (93) 141/63 (89) Pulse Ox 97 95 96 99 O2 Delivery Nasal Cannula Nasal Cannula Nasal Cannula Nasal Cannula O2 Flow Rate 2.0 2.0 2.0 2.0 10/17/18 10/17/18 10/17/18 10/17/18 17:30 19:00 20:11 21:04 Temp 98.9 98.9 Pulse 74 83 74 Resp 26 17 B/P (MAP) 152/69 (96) 128/50 (76) 152/69 Pulse Ox 99 93 O2 Delivery Nasal Cannula Room Air Room Air O2 Flow Rate 2.0 10/17/18 10/17/18 10/18/18 10/18/18 22:35 23:00 03:00 07:00 Temp 98.2 97.6 97.9 98.2 97.6 97.9 Pulse 79 76 74 Resp 16 16 16 17 B/P (MAP) 147/45 (79) 144/81 (102) 164/87 (112) Pulse Ox 93 93 93 95 O2 Delivery Room Air Room Air Room Air Room Air 10/18/18 10/18/18 10/18/18 08:39 08:39 10:07 Pulse 76 76 Resp 18 B/P (MAP) 144/81 144/81 O2 Delivery Room Air Intake and Output 10/17/18 10/17/18 10/18/18 15:00 23:00 07:00 Intake Total 250 ml 390 ml Balance 250 ml 390 ml CLAUDIA NARAYAN MD Oct 18, 2018 10:38
[2018-10-18 11:00] VITALS: BP 153/80
--- NOTE | 2018-10-18 14:30 | PDOC3 ---
Discharge Summary Date of Admission: Oct 17, 2018 Date of Discharge: Oct 18, 2018 Follow-Up: 3-5 days Admitting Diagnosis comment: DISCHARGE DX ACUTE GOUT, RT foot, neg sono as OP for DVT ua slightly elevated Cellulitis rt foot? - hold off abx REcent thyroidectomy, uneventful Obesity DM 2 HTN controlled GAIT INSTABILITY PLAn: pain control PRed PO now and colcrys 1.2 then 0.6 PO qD ESR crp and uric acid all elevated ok to eat I held off abx 2 mN, Med surg floor ok FULL CODE I have reconciled home meds cont po synthroid 28 min pt exam, chart review, > 50% of time spent with exam, chart review, pt care coordination Vitals Vitals Vital Signs Date Time Temp Pulse Resp B/P (MAP) Pulse Ox O2 Delivery O2 Flow Rate FiO2 10/18/18 10:07 18 Room Air 10/18/18 08:39 76 144/81 10/18/18 07:00 97.9 95 97.9 10/17/18 17:30 2.0 Physical Exam General: Alert, Oriented X3, Cooperative, No acute distress Heart: Regular rate, Normal S1, Normal S2 Lungs: Clear Abdomen: Normal bowel sounds, Soft, No tenderness, No hepatosplenomegaly, No masses Extremities: No cyanosis, Other (redenss rt dorsal surface, noskin break, limited movement bec of pain and swelling) FINAL DIAGNOSIS Problems Medical Problems: (1) Cellulitis Status: Acute Brief Hospital Course Ms. Call is a 62 old [sex] who presented with [ ] CONDITION AT DISCHARGE: Improved Discharge Medications Current Medications Fentanyl Citrate (Fentanyl 2ml Vial) 50 mcg 1X ONCE IV Last administered on 10/17/18at 13:59; Start 10/17/18 at 13:15; Stop 10/17/18 at 13:16; Status DC Clindamycin Phosphate 50 ml @ 100 mls/hr 1X ONCE IV Last administered on 10/17/18at 15:25; Start 10/17/18 at 15:15; Stop 10/17/18 at 15:44; Status DC Fentanyl Citrate (Fentanyl 2ml Vial) 50 mcg PRN Q2HR PRN IV MODERATE TO SEVERE PAIN Last administered on 10/17/18at 18:51; Start 10/17/18 at 16:15 Clindamycin Phosphate 50 ml @ 100 mls/hr Q8HRS IV ; Start 10/17/18 at 22:00; Stop 10/17/18 at 17:38; Status DC Clonidine HCl (Catapres) 0.1 mg PRN Q1HR PRN PO HYPERTENSION; Start 10/17/18 at 16:15 Temazepam (Restoril) 7.5 mg PRN QHS PRN PO INSOMNIA; Start 10/17/18 at 16:15 Ondansetron HCl (Zofran) 4 mg PRN Q6HRS PRN IV NAUSEA/VOMITING; Start 10/17/18 at 16:15 Acetaminophen/ Hydrocodone Bitart (Lortab 5/325) 1 tab PRN Q4HRS PRN PO MOD ERATE PAIN Last administered on 10/18/18at 10:07; Start 10/17/18 at 16:15 Naproxen (Naprosyn) 500 mg BID PO ; Start 10/17/18 at 21:00; Stop 10/17/18 at 17:38; Status DC Aspirin (Children'S Aspirin) 81 mg DAILY PO Last administered on 10/18/18at 08:39; Start 10/18/18 at 09:00 Atenolol (Tenormin) 50 mg BID PO Last administered on 10/18/18 08:39; Start 10/17/18 at 21:00 Calcium Carbonate/ Glycine (Oscal) 500 mg TIDAFTMEAL PO Last administered on 10/18/18at 08:39; Start 10/17/18 at 18:00 Cetirizine HCl (ZyrTEC) 10 mg DAILY PO Last administered on 10/18/18 08:39; Start 10/18/18 at 09:00 Vitamin D (Vitamin D3) 500 unit DAILY PO Last administered on 10/18/18 08:39; Start 10/18/18 at 09:00 Dicyclomine HCl (Bentyl) 10 mg BID PO Last administered on 10/18/18 10:07; Start 10/17/18 at 21:00 Levothyroxine Sodium (Synthroid) 50 mcg DAILY06 PO Last administered on 10/18/18at 06:01; Start 10/18/18 at 06:00 Montelukast Sodium (Singulair) 10 mg HS PO Last administered on 10/17/18at 21:04; Start 10/17/18 at 21:00 Oxycodone/ Acetaminophen (Percocet 5/325) 1 tab PRN Q4HRS PRN PO SEVERE PAIN; Start 10/17/18 at 16:15 Simvastatin (Zocor) 40 mg QHS PO Last administered on 10/17/18at 21:04; Start 10/17/18 at 21:00 Cyanocobalamin (Vitamin B-12) 1,000 mcg DAILY PO Last administered on 10/18/18at 08:39; Start 10/18/18 at 09:00 Non-Formulary Medication (Gluc 2KCL/ Chondr/Brian Hy/Hy Ac (Glucosamine & Chondr oitin Cap)) 1 each DAILY PO ; Start 10/18/18 at 09:00; Status UNV Insulin Glargine (Lantus Syringe) 30 unit QEVNG SQ Last administered on 10/17/18at 20:07; Start 10/17/18 at 18:00 Insulin Glargine (Lantus Syringe) 60 unit DAILYWBKFT SQ Last administered on 10/18/18at 10:07; Start 10/18/18 at 08:00 Non-Formulary Medication (Liraglutide (Victoza 3-Sea)) 1.8 mg QEVNG SQ ; Start 10/17/18 at 18:00; Status UNV Metformin HCl (Glucophage) 1,000 mg BIDWMEALS PO Last administered on 10/18/18at 08:39; Start 10/17/18 at 17:30 Multivitamins (Thera M Plus) 1 tab DAILY PO Last administered on 10/18/18at 08:39; Start 10/18/18 at 09:00 Losartan Potassium (Cozaar) 25 mg DAILY PO Last administered on 10/18/18at 08:39; Start 10/18/18 at 09:00 Insulin Human Lispro (HumaLOG) 0-9 UNITS TIDWMEALS SQ ; Start 10/17/18 at 17:00; Stop 10/18/18 at 08:30; Status DC Dextrose (Dextrose 50%-Water Syringe) 12.5 gm PRN Q15MIN PRN IV SEE COMMENTS; Start 10/17/18 at 16:15 Dextrose 250 ml PRN Q15MIN PRN IV SEE COMMENTS; Start 10/17/18 at 16:15; Status UNV Naproxen (Naprosyn) 500 mg BID PO Last administered on 10/18/18at 08:39; Start 10/17/18 at 18:00 Colchicine (Colcrys) 1.2 mg 1X ONCE PO Last administered on 10/17/18at 18:51; Start 10/17/18 at 18:00; Stop 10/17/18 at 18:01; Status DC Colchicine (Colcrys) 0.6 mg DAILY PO Last administered on 10/18/18at 08:39; Start 10/18/18 at 09:00 Prednisone (Prednisone) 60 mg 1X ONCE PO Last administered on 10/17/18at 18:51; Start 10/17/18 at 17:45; Stop 10/17/18 at 17:51; Status DC Prednisone (Prednisone) 40 mg DAILY PO Last administered on 10/18/18at 08:39; Start 10/18/18 at 09:00 Active Scripts Active Vitamin D3 (Cholecalciferol (Vitamin D3)) 1,000 Unit Tablet 500 Unit PO DAILY Synthroid (Levothyroxine Sodium) 50 Mcg Tablet 50 Mcg PO DAILY06 Oyster Shell Calcium (Calcium Carbonate) 500 Mg Tablet 500 Mg PO TIDAFTMEAL Percocet 5-325 Mg Tablet (Oxycodone/Acetaminophen) 1 Each Tablet 1 Tab PO PRN Q4HRS PRN Reported Glucosamine & Chondroitin Cap (Gluc 2KCL/Chondr/Brian Hy/Hy Ac) 1 Each Capsule 1 Each PO DAILY Tresiba (Insulin Degludec) 100 Unit/1 Ml Vial 30 Unit SQ QEVNG Tresiba (Insulin Degludec) 100 Unit/1 Ml Vial 60 Unit SQ DAILYWBKFT Victoza 3-Sea (Liraglutide) 0.6 Mg/0.1 Ml Pen.injctr 1.8 Mg SQ QEVNG Aspirin 81 Mg Tab.chew 1 Tab PO DAILY Vitamin B-12 (Cyanocobalamin (Vitamin B-12)) 1,000 Mcg Capsule 1,000 Mcg PO DAILY Multivitamins (Multivitamin) 1 Each Tablet 1 Tab PO DAILY Dicyclomine Hcl 10 Mg Capsule 1 Cap PO BID Cetirizine Hcl 10 Mg Tablet 1 Tab PO DAILY Zocor (Simvastatin) 40 Mg Tablet 1 Tab PO QHS Atenolol 50 Mg Tablet 1 Tab PO BID Montelukast Sodium Tablet (Montelukast Sodium) 10 Mg Tablet 10 Mg PO HS Micardis (Telmisartan) 40 Mg Tablet 0.5 Tab PO DAILY Metformin Hcl 1,000 Mg Tablet 1,000 Mg PO BIDWMEALS Vital Signs Vital Signs Date Time Temp Pulse Resp B/P (MAP) Pulse Ox O2 Delivery O2 Flow Rate FiO2 10/18/18 11:21 16 Room Air 10/18/18 11:00 98.1 72 153/80 (104) 96 98.1 10/17/18 17:30 2.0 Labs Laboratory Tests Test 10/17/18 13:45 10/17/18 18:02 10/17/18 19:40 10/18/18 07:58 White Blood Count 8.1 x10^3/uL (4.0-11.0) Red Blood Count 4.81 x10^6/uL (3.50-5.40) Hemoglobin 13.8 g/dL (12.0-15.5) Hematocrit 40.8 % (36.0-47.0) Mean Corpuscular Volume 85 fL (79-100) Mean Corpuscular Hemoglobin 29 pg (25-35) Mean Corpuscular Hemoglobin Concent 34 g/dL (31-37) Red Cell Distribution Width 14.8 % (11.5-14.5) Platelet Count 191 x10^3/uL (140-400) Neutrophils (%) (Auto) 67 % (31-73) Lymphocytes (%) (Auto) 20 % (24-48) Monocytes (%) (Auto) 12 % (0-9) Eosinophils (%) (Auto) 1 % (0-3) Basophils (%) (Auto) 0 % (0-3) Neutrophils # (Auto) 5.4 x10^3/uL (1.8-7.7) Lymphocytes # (Auto) 1.6 x10^3/uL (1.0-4.8) Monocytes # (Auto) 1.0 x10^3/uL (0.0-1.1) Eosinophils # (Auto) 0.1 x10^3/uL (0.0-0.7) Basophils # (Auto) 0.0 x10^3/uL (0.0-0.2) Erythrocyte Sedimentation Rate 50 (0-25) Sodium Level 140 mmol/L (136-145) Potassium Level 4.1 mmol/L (3.5-5.1) Chloride Level 101 mmol/L (98-107) Carbon Dioxide Level 33 mmol/L (21-32) Anion Gap 6 (6-14) Blood Urea Nitrogen 10 mg/dL (7-20) Creatinine 0.6 mg/dL (0.6-1.0) Estimated GFR (Cockcroft-Gault) 102.0 BUN/Creatinine Ratio 17 (6-20) Glucose Level 114 mg/dL (70-99) Lactic Acid Level 1.8 mmol/L (0.4-2.0) Uric Acid 7.3 mg/dL (2.6-6.0) Calcium Level 7.5 mg/dL (8.5-10.1) Ionized Calcium 0.92 mmol/L (1.13-1.32) Total Bilirubin 1.0 mg/dL (0.2-1.0) Aspartate Amino Transf (AST/SGOT) 23 U/L (15-37) Alanine Aminotransferase (ALT/SGPT) 23 U/L (14-59) Alkaline Phosphatase 86 U/L (46-116) C-Reactive Protein, Quantitative 80.5 mg/L (0-3.3) FO-[id number]-[id number]-Type Natriuretic Peptide 46 pg/mL (0-124) Total Protein 7.7 g/dL (6.4-8.2) Albumin 3.6 g/dL (3.4-5.0) Albumin/Globulin Ratio 0.9 (1.0-1.7) Glucose (Fingerstick) 71 mg/dL (70-99) 113 mg/dL (70-99) 132 mg/dL (70-99) Test 10/18/18 12:13 Glucose (Fingerstick) 118 mg/dL (70-99) Laboratory Tests Test 10/17/18 18:02 10/17/18 19:40 10/18/18 07:58 10/18/18 12:13 Glucose (Fingerstick) 71 mg/dL (70-99) 113 mg/dL (70-99) 132 mg/dL (70-99) 118 mg/dL (70-99) Allergies Allergies Coded Allergies Type Severity Reaction Last Updated Verified No Known Drug Allergies 10/11/18 No Disposition/Orders: D/C to Home Patient Instructions D/C PLANNING 27 MIN CLAUDIA NARAYAN MD Oct 18, 2018 14:30
[2018-10-18] MEDS ORDERED: COLC0.6T34 PO (14:35)
[2018-10-18] MEDS ORDERED: PRED20TA PO (14:35)
[2018-10-18] MEDS ORDERED: NAPR-683 PO (14:35)
[2018-10-18 15:01] VITALS: BP 156/77
--- NOTE | 2018-10-18 15:20 | DISCH ---
DISCHARGE INSTRUCTIONS Condition on Discharge Condition on Discharge: Stable Activity After Discharge Activity Instructions for Disc: Activity as tolerated, Avoid exertion Bathing Instructions: Shower-keep dressing dry, No Tub Bath until see Lifting Instructions after Dis: No heavy lifting, No pulling or pushing Exercise Instruction after Dis: Progress as tolerated Driving Instructions after Dis: Do not drive, Do not drive today Weight Bearing Status after Di: No restrictions, As tolerated Diet after Discharge Diet after Discharge: Diabetic No Calorie Level Diet Texture: Regular Liquid Texture: Thin Liquid Wound Incision Care Wound/Incision Care: Ice to area for comfort, May get incision wet, No wound care needed Checks after Discharge Checks after discharge: Check blood sugar, ac/hs DC Comment: LOW PURINE DIET Contacting the [facility] after DC Call your doctor for: Concerns you may have Follow-Up Follow Up With: PCP TUESDAY Treatment/Equipment after DC Adaptive Equipment Issued: None Warfarin Follow-Up Warfarin Follow UP: LOW PURINE DIET CLAUDIA NARAYAN MD Oct 18, 2018 15:20
--- NOTE | 2018-10-18 16:01 | NUR ---
Discharge Note: [facility] SNOWDEN [address] [place] [address] Discharge instructions and discharge home medications reviewed with Patient and a copy given. All questions have been answered and understanding verbalized. The following instructions and handouts were given: Diet, Gout, Prednisone Discontinued lines and drains: peripheral line. Patient discharged to Home or Self Care with Family Member via Wheelchair
[2018-10-19 02:08] LABS: HEMOGLOBIN A1C 6.4 % (4.8-5.6)
== END 2018-10-18 16:03 | disposition home or self-care (01) | DRG 554 ==
LOC: ER 12:40 → 5 SOUTH 14:00
PROVIDERS: ADMIT Internal Medicine; ATTEND Internal Medicine
DX: M10.9 Gout, unspecified (principal); L03.115 Cellulitis of right lower limb; M85.80 Other specified disorders of bone density and structure, unspecified site; Z82.49 Family history of ischemic heart disease and other diseases of the circulatory system; I10 Essential (primary) hypertension; E89.0 Postprocedural hypothyroidism; E66.9 Obesity, unspecified; E11.9 Type 2 diabetes mellitus without complications; Z68.39 Body mass index [BMI] 39.0-39.9, adult; Z79.899 Other long term (current) drug therapy
CPT/HCPCS: 36415; 73610; 73630; 80053; 82310; 82962; 83036; 83605; 83880; 84550; 85025; 85651; 86140; 87040; J1815; J3010; J3490; J7512; G0378